=== PATIENT | female | born 1990 | race Caucasian/White ===

== ENCOUNTER 2022-02-03 17:09 | Emergency (ER) | payer MEDICAID ==
[~2022-02-03] VITALS: Ht 157.5 cm; Wt 85.3 kg
[2022-02-03 17:24] VITALS: BP 117/68
--- NOTE | 2022-02-03 18:09 | NUR ---
PT AMBULATED TO ER BED 6
[2022-02-03] MEDS ORDERED: KETOROLAC 30 MG/ML VIAL IM ONE (18:20)
[2022-02-03 18:34] LABS: BASOPHILS % (AUTO) 0.4 % (0.0-2.0); EOSINOPHILS # (AUTO) 0.4 K/uL (0-0.4); EOSINOPHILS % (AUTO) 3.6 % (0.0-4.0); HEMATOCRIT 37.6 % (36-48); LYMPHOCYTES # (AUTO) 2.5 K/uL (2.5-16.5); LYMPHOCYTES % (AUTO) 25.3 % (20.5-51.1); MEAN CORPUSCULAR HEMOGLOBIN 30 pg (27-31); MEAN CORPUSCULAR HGB CONC 34 g/dL (33-37); MONOCYTES # (AUTO) 0.6 K/uL (0.8-1.0); MONOCYTES % (AUTO) 6.2 % (1.7-9.3); NEUTROPHILS # (AUTO) 6.5 K/uL (1.8-7.7); NEUTROPHILS % (AUTO) 64.5 % (42.2-75.2); PLATELET COUNT (AUTO) 329 K/uL (140-450); RED BLOOD CELL COUNT(AUTO) 4.32 MIL/uL (4.20-5.40); RED CELL DISTRIBUTION WIDTH 13.2 % (11.6-13.7)
[2022-02-03 18:37] LABS: APPEARANCE,URINE CLEAR (CLEAR); BILIRUBIN,URINE NEGATIVE (NEGATIVE); BLOOD, URINE TRACE-I (NEGATIVE); COLOR,URINE YELLOW (YELLOW); LEUKOCYTE ESTERASE ,URINE NEGATIVE (NEGATIVE); NITRITE, URINE NEGATIVE (NEGATIVE); UGLUCOSE NEGATIVE (NEGATIVE)
[2022-02-03 18:49] LABS: WBC,URINE 0-5 /HPF (0-5); YEAST,URINE None Seen /HPF (None Seen)
[2022-02-03 18:50] LABS: TRICHOMONAS,URINE None Seen /HPF (None Seen)
[2022-02-03 18:52] LABS: ALBUMIN 3.6 g/dL (3.4-5.0); ANION GAP 11.2 (8-16); CARBON DIOXIDE 27.6 mmol/L (21-32); CREATININE 0.7 mg/dL (0.6-1.3); POTASSIUM 3.8 mmol/L (3.5-5.1); TOTAL BILIRUBIN 0.2 mg/dL (0.0-1.0)
--- NOTE | 2022-02-03 18:54 | NUR ---
Female Junior Account Executive accompanied female patient for Ultrasound.
--- NOTE | 2022-02-03 18:56 | NUR ---
31 Y/O FEMALE BIB SELF C/O LOWER ABD PAIN AND VAGINAL [id number]. PER PT ONSET OF PAIN HAD INCREASED AMOUNTS OF VAGINAL BLEEDING, SATURATING 5PADS/DAY, NOW VAGINAL BLEEDING IS SPOTTING. TOOK IBUPROFEN WITH MINIMAL RELIEF. DENIES ANY N/V ALLERGY: PCN PMH: DENIES
--- NOTE | 2022-02-03 19:12 | NUR ---
Pt report given to LORRI SHORT. Transfer of care at this time.
[2022-02-03] MEDS ORDERED: ACET-10509 PO (19:36)
[2022-02-03] MEDS ORDERED: IBUP-2213 PO (19:36)
[2022-02-03 19:46] VITALS: BP 136/73
--- NOTE | 2022-02-03 19:46 | NUR ---
Patient discharged with v/s stable. Written and verbal after care instructions given and explained. Patient alert, oriented and verbalized understanding of instructions. Ambulatory with steady gait. All questions addressed prior to discharge. ID band removed. Patient advised to follow up with PMD. Rx of TYLENOL EXTRA STRENGTH IBUPROFEN given.
== END 2022-02-03 19:46 | disposition home or self-care (01) ==
LOC: MED 17:09
DX: N83.202 Unspecified ovarian cyst, left side (principal)
CPT/HCPCS: 36415; 76856; 80053; 81001; 81025; 83690; 85025; 93976; 96372; 99284; J1885; Q0092; 96360; 96361; 99285

== ENCOUNTER 2022-07-13 20:20 | Emergency (ER) | payer MEDICAID ==
[~2022-07-13] VITALS: Ht 157.5 cm; Wt 91.6 kg
[~2022-07-13 20:20] MED LIST: ACET-10509 PO; IBUP-2213 PO
[2022-07-13 20:42] VITALS: BP 120/66
--- NOTE | 2022-07-13 23:10 | NUR ---
PATIENT LEFT WITHOUT BEING SEEN BY DR. MELLO. NO FURTHER CARE PROVIDED FOR PATIENT.
--- NOTE | 2022-07-13 23:10 | NUR ---
PATIENT CALL BY DR MELLO TO EXAMINE, NO RESPONSE
--- NOTE | 2022-07-13 23:18 | NUR ---
CALLED FOR THE SECOND TIME , NO RESPONSE
--- NOTE | 2022-07-13 23:23 | NUR ---
CALLED FOR THE THIRD TIME , NO RESPONSE
== END 2022-07-13 23:10 | disposition left against medical advice (07) ==
LOC: MED 20:20
DX: M79.601 Pain in right arm (principal); Z53.21 Procedure and treatment not carried out due to patient leaving prior to being seen by health care provider
CPT/HCPCS: 99281

== ENCOUNTER 2023-07-03 22:15 | Emergency (ER) | payer MEDICAID, OTHER ==
[~2023-07-03] VITALS: Ht 157.5 cm; Wt 86.2 kg
[2023-07-03 22:23] VITALS: BP 122/88; PULSE 90; RESP 17; TEMP 98.1; O2SAT 99
[2023-07-03 22:57] LABS: BILIRUBIN,URINE NEGATIVE (NEGATIVE); BLOOD, URINE NEGATIVE (NEGATIVE); COLOR,URINE YELLOW (YELLOW); LEUKOCYTE ESTERASE ,URINE NEGATIVE (NEGATIVE); NITRITE, URINE NEGATIVE (NEGATIVE); PH,URINE 7.5 (5.0-9.0); PROTEIN,URINE NEGATIVE (NEGATIVE); UGLUCOSE NEGATIVE (NEGATIVE); UROBILINOGEN,URINE 0.2 EU/dL (0.2 - 1)
[2023-07-03 23:03] LABS: APPEARANCE,URINE CLEAR (CLEAR)
[2023-07-03 23:47] LABS: BASOPHILS # (AUTO) 0.1 K/uL (0.00-0.22); BASOPHILS % (AUTO) 0.4 % (0.0-2.0); EOSINOPHILS # (AUTO) 0.2 K/uL (0-0.4); EOSINOPHILS % (AUTO) 1.4 % (0.0-4.0); HEMATOCRIT 37.6 % (36-48); HEMOGLOBIN 12.9 g/dL (12.0-16.0); LYMPHOCYTES # (AUTO) 4.1 K/uL (2.5-16.5); LYMPHOCYTES % (AUTO) 30.5 % (20.5-51.1); MEAN CORPUSCULAR HEMOGLOBIN 30 pg (27-31); MEAN CORPUSCULAR HGB CONC 34 g/dL (33-37); MEAN CORPUSCULAR VOLUME 86.5 fL (80-94); MONOCYTES # (AUTO) 0.8 K/uL (0.8-1.0); NEUTROPHILS # (AUTO) 8.3 K/uL (1.8-7.7); NEUTROPHILS % (AUTO) 61.7 % (42.2-75.2); PLATELET COUNT (AUTO) 363 K/uL (140-450); RED BLOOD CELL COUNT(AUTO) 4.35 MIL/uL (4.20-5.40); RED CELL DISTRIBUTION WIDTH 13.2 % (11.6-13.7); WHITE BLOOD COUNT (AUTO) 13.4 K/uL (4.8-10.8)
[2023-07-04 00:09] LABS: ALBUMIN 3.8 g/dL (3.4-5.0); ANION GAP 12.3 (8-16); CALCIUM 9.3 mg/dL (8.5-10.1); CARBON DIOXIDE 28.7 mmol/L (21-32); CREATININE 0.8 mg/dL (0.6-1.3); TOTAL BILIRUBIN 0.3 mg/dL (0.0-1.0); TOTAL PROTEIN, SERUM 7.6 g/dL (6.4-8.2)
[2023-07-04] MEDS: KETOROLAC 30 MG/ML VIAL IM ONE (03:02)
[2023-07-04 03:59] VITALS: TEMP 98.1
[2023-07-04] MEDS ORDERED: ACET-8905 PO (06:11)
[2023-07-04] MEDS ORDERED: NAPR-54 PO (06:11)
[2023-07-04] MEDS: HYDROcodone/APAP 5/325 MG 1 TAB TAB PO ONE (06:20)
[2023-07-04 06:24] VITALS: BP 117/78; PULSE 86; RESP 16; O2SAT 99
== END 2023-07-04 06:30 | disposition home or self-care (01) ==
LOC: MED 22:15
DX: N93.8 Other specified abnormal uterine and vaginal bleeding (principal); M79.652 Pain in left thigh; Z79.899 Other long term (current) drug therapy; Z88.0 Allergy status to penicillin
CPT/HCPCS: 36415; 76856; 80053; 81003; 81025; 85025; 93976; 96372; 99285; J1885

== ENCOUNTER 2023-11-17 11:26 | Emergency (ER) | payer OTHER ==
[~2023-11-17] VITALS: Ht 157.5 cm; Wt 87.7 kg
[~2023-11-17 11:26] MED LIST changes: +ACET-8905 PO; +NAPR-337 PO
[2023-11-17 11:35] VITALS: BP 126/63; PULSE 94; RESP 18; TEMP 98.1; O2SAT 99
[2023-11-17] MEDS: KETOROLAC 30 MG/ML VIAL IM ONE (12:53)
[2023-11-17] MEDS: LIDOCAINE 5% 1 EA PATCH TP ONE (12:54)
[2023-11-17] MEDS: DEXAMETHASONE 4 MG/ML VIAL PO ONE (12:54)
[2023-11-17] MEDS ORDERED: CYCL-711 PO (13:35)
[2023-11-17] MEDS ORDERED: METH4TAB1 PO (13:35)
[2023-11-17] MEDS ORDERED: NAPR-337 PO (13:35)
[2023-11-17] MEDS ORDERED: LID5T TP (13:35)
[2023-11-17] MEDS: HYDROcodone/APAP 5/325 MG 1 TAB TAB PO ONE (13:43)
== END 2023-11-17 14:00 | disposition home or self-care (01) ==
LOC: MED 11:26
DX: S39.012A Strain of muscle, fascia and tendon of lower back, initial encounter (principal); Z79.899 Other long term (current) drug therapy; Z88.0 Allergy status to penicillin; X58.XXXA Exposure to other specified factors, initial encounter; Y92.89 Other specified places as the place of occurrence of the external cause; Y93.89 Activity, other specified; Y99.8 Other external cause status
CPT/HCPCS: 96372; 99284; J1100; J1885

== ENCOUNTER 2024-01-02 20:46 | Emergency (ER) | payer OTHER ==
[~2024-01-02] VITALS: Ht 157.5 cm; Wt 86.2 kg
[~2024-01-02 20:46] MED LIST changes: -ACET-10509 PO; +ACET500T99 PO; +CYCL-711 PO; +LID5T TP; +METH4TAB1 PO
[2024-01-02 20:56] VITALS: BP 118/71; PULSE 109; RESP 20; TEMP 98; O2SAT 98
[2024-01-02 21:25] VITALS: O2SAT 98
[2024-01-02 22:02] VITALS: BP 118/71; PULSE 109; RESP 20; TEMP 98; O2SAT 98
[2024-01-02] MEDS: KETOROLAC 30 MG/ML VIAL IM ONE (22:02)
[2024-01-02] MEDS: ACETAMINOPHEN EXTRA STRENGTH 500 MG TAB PO ONE (22:02)
== END 2024-01-02 22:02 | disposition home or self-care (01) ==
LOC: MED 20:46
DX: G56.01 Carpal tunnel syndrome, right upper limb (principal); Z79.899 Other long term (current) drug therapy; Z88.0 Allergy status to penicillin
CPT/HCPCS: 96372; 99283; J1885